=== PATIENT | male | born 1940 | race Caucasian/White ===

== ENCOUNTER 2021-06-21 05:50 | Emergency (ER) | payer OTHER ==
[~2021-06-21] VITALS: Ht 185.4 cm; Wt 83.9 kg
--- NOTE | 2021-06-21 06:00 | NUR ---
PT AMBULATED TO ER WITH C/O "PILL STUCK IN MY THROAT FOR 2 DAYS". NO SOB OR LABORED BREATHING, AFEBRILE. CLEAR SPEECH, COMPLETE SENTENCES.
[2021-06-21] MEDS ORDERED: SIMV10TA98 PO (06:11)
--- NOTE | 2021-06-21 06:15 | NUR ---
DR. HALL AT BEDSIDE, MSE IN PROGRESS.
[2021-06-21] MEDS: IV NORMAL SALINE 100 ML BAG IV ONE (06:42)
--- NOTE | 2021-06-21 06:42 | NUR ---
XRAY AT BEDSIDE.
[2021-06-21 06:58] LABS: POTASSIUM 3.7 mmol/L (3.5-5.1)
[2021-06-21 07:04] LABS: BILIRUBIN,TOTAL 0.9 mg/dL (0.2-1.0); TOTAL PROTEIN, SERUM 7.5 g/dL (6.4-8.2)
[2021-06-21 07:38] LABS: HEMATOCRIT 38.9 % (36.7-47.1); MEAN CORPUSCULAR HEMOGLOBIN 30.6 uug (23.8-33.4); MEAN CORPUSCULAR VOLUME 87.3 fL (73.0-96.2); PLATELET COUNT (AUTO) 121 K/uL (152-348)
[2021-06-21 09:13] VITALS: BP 155/81
--- NOTE | 2021-06-21 09:14 | NUR ---
Patient discharged to home in stable condition. Written and verbal after care instructions given. Patient verbalizes understanding of instructions. Stressed follow up or return to ER for worsening s/s.
== END 2021-06-21 09:15 | disposition home or self-care (01) ==
LOC: ER 05:59
DX: R13.10 Dysphagia, unspecified (principal); U07.1 COVID-19; E86.0 Dehydration; E87.1 Hypo-osmolality and hyponatremia; E78.5 Hyperlipidemia, unspecified
CPT/HCPCS: 36415; 70030-TC; 71045; 83690; 85025; 93005; A4663; J7030